=== PATIENT | male | born 1995 | race Caucasian/White ===

== ENCOUNTER 2023-01-11 08:34 | Outpatient (CLI) | payer OTHER ==
--- NOTE | 2023-01-11 15:23 | MRI Report ---
PROCEDURE: SHOULDER WO - LT INDICATIONS: LEFT SHOULDER PAIN TECHNIQUE: Noncontrast oblique coronal T2 fast spin echo with fat saturation, oblique sagittal T1 spin echo and T2 fast spin echo with fat saturation, axial T1 spin echo and T2 fast spin echo with fat saturation a nd 3-D gradient echo through the shoulder. COMPARISON: Left shoulder radiographs 12/13/2022 FINDINGS: Image quality: Excellent. Rotator cuff: Mild supraspinatus and infraspinatus tendinosis. The teres minor and subscapularis tend ons are intact. There is no significant rotator cuff muscle atrophy. Bones and bursae: No acute trabecular bone injury or fracture. Chronic traction cystic changes are se en at the posterosuperior humeral head. No focal glenohumeral cartilage defect is seen. No significan t degenerative changes of the acromioclavicular joint. Trace subacromial/subdeltoid bursal fluid. No significant glenohumeral effusion. Capsule and soft tissues: No displaced labral tear is seen. The proximal biceps long head tendon is i ntact. There is mild partial effacement of the fat in the rotator interval. The anterior band inferio r glenohumeral ligament appears mildly thickened. IMPRESSION: 1.Mild supraspinatus and infraspinatus tendinosis. No significant rotator cuff tendon tear. 2.No displaced labral tear. Biceps long head tendon is intact. No acute trabecular bone injury. 3.Trace subacromial/subdeltoid bursal effusion or bursitis. 4.Mild partial effacement of the rotator interval fat and mild thickening of the inferior glenohumera l ligament are nonspecific, but can be seen in the setting of the clinical syndrome of mild adhesive capsulitis. Reviewed by: Bhupinder Noble MD on 01/11/2023 3:22 PM PDT Approved by: Bhupinder Noble MD on 01/11/2023 3:22 PM PDT Station ID: [id number]
== END 2023-01-11 08:35 | disposition home or self-care (01) ==
LOC: DI 08:34
DX: M25.511 Pain in right shoulder (principal); M75.82 Other shoulder lesions, left shoulder

== ENCOUNTER 2023-08-31 23:08 | Emergency (ER) | payer OTHER ==
[2023-08-31] MEDS ORDERED: ONDANSETRON ODT 4 MG TABLET TL STA (23:34)
--- NOTE | 2023-08-31 23:47 | ED Physician Documentation ---
PD HPI OVERDOSE - Stated complaint Stated Complaint: UNINTENTIONAL OD - Chief complaint Chief Complaint: MHE - History obtained from History obtained from: Patient - Additional information Additional information: Patient is a 27-year-old male presenting for evaluation of accidental overdose of escitalopram 20 mg x 3 tablets at 9:30 PM. Patient states that he just returned home and was getting ready for bed and accidentally took 3 pills of the escitalopram which He is no longer taking. He thought it was his sleep aid (Doxepin) medication which was recently prescribed to him. He is allowed to ta ke up to 3 tablets of the sleep aid and reports taking 2 tablets last night which he states did not feel like it helped him. He reports feeling a little bit of nausea and lightheadedness. He called the [facility] nurse advice line who recommended he come to the emergency department for evaluation. Denies drug or alcohol use. Denies accidental ingestion or use of any other medications this evening. Review of Systems Constitutional: denies: Fever Cardiac: denies: Chest pain / pressure Respiratory: denies: Dyspnea GI: denies: Abdominal Pain Neurologic: denies: Syncope PD PAST MEDICAL HISTORY - Present Medications Home Medications: Ambulatory Orders Medication Instructions Recorded Confirmed Doxepin HCl [Silenor] 3 mg PO DAILY 08/31/23 Escitalopram [Lexapro] 20 mg PO DAILY 08/31/23 - Allergies Allergies/Adverse Reactions: Allergies Allergy/AdvReac Type Severity Reaction Status Date / Time No Known Drug Allergies Allergy Verified 08/31/23 23:21 PD ED PE NORMAL - General General: Alert and oriented X 3, No acute distress, Well developed/nourished - HEENT HEENT: Atraumatic - Neck Neck: Supple, no meningeal sign - Cardiac Cardiac: RRR, Strong equal pulses - Respiratory Respiratory: No respiratory distress, Clear bilaterally - Abdomen Abdomen: Soft, Non tender - Derm Derm: Warm and dry - Neuro Neuro: Normal speech Results - Vitals Vitals: Vital Signs - 24 hr 08/31/23 08/31/23 23:09 23:51 Temperature 36.6 C Heart Rate 99 80 Respiratory 17 18 Rate Blood Pressure 143/89 H 130/91 H O2 Saturation 97 98 Oxygen O2 Source Room air PD Medical Decision Making - ED course ED course: Patient is a 27-year-old male presenting for evaluation of accidental overdose of escitalopram. He accidentally took 3 pills of 20 mg. He mistook it for another medication he was going to take for sleep aid. Poison control was contacted by [facility] Erickson. Per poison control the amount that patient accidentally ingested is not a significant amount and he would not require further monitoring or testing. Per poison control if he had contacted them directly they would not have directed him to the emergency department. Patient is well-appearing. I did give him a Zofran ODT. He is ambulating without any difficulty. Vital signs here are stable. Patient counseled on need to take extra precaution in order to make sure he is taking the right medication and the right dose.He is not suicidal and this was entirely accidental. He was given poison control information and also advised to return to the ER should he develop any new or wo rsening symptoms. Departure - Departure Disposition: 01 Home, Self Care Clinical Impression: Accidental overdose Instructions: ED Overdose Accidental Comments: We spoke to poison control tonight about your accidental overdose. Fortunately based on the amount you took it should not cause any serious side effects. Please take caution when taking her medications and making sure you know exactly what you are taking before ingesting it. I would recommend throwing away or storing away any old medications that you are not currently supposed to be using. Return to the emergency department with any worsening symptoms or new concerns. Poison Control Centers Hours: 24 hours, 7 days a week. [phone] Forms: PCP List Discharge Date/Time: 08/31/23 23:52
[2023-09-01 00:01] VITALS: BP 130/91; O2SAT 98
== END 2023-08-31 23:52 | disposition home or self-care (01) ==
LOC: ED 23:08
DX: T43.221A Poisoning by selective serotonin reuptake inhibitors, accidental (unintentional), initial encounter (principal); Z79.899 Other long term (current) drug therapy
CPT/HCPCS: 99282; 99283; Q0162